=== PATIENT | female | born 1990 ===

== ENCOUNTER 2017-02-22 18:37 | Emergency (ER) | payer MEDICAID ==
[2017-02-22 20:47] LABS: BASO % 0.5 % (0.0-2.0); EOS # 0.2 K/uL (0.0-0.7); EOS % 2.3 % (0.0-4.0); HEMATOCRIT 38.7 % (34.0-47.0); LYMPH # 2.8 K/uL (1.0-4.3); LYMPH % 37.5 % (20.0-40.0); MEAN CELL VOLUME 88.1 fL (81.0-99.0); MEAN CORPUSCULAR HEMOGLOBIN 28.7 pg (27.0-31.0); MEAN CORPUSCULAR HGB CONC 32.6 g/dL (33.0-37.0); MEAN PLATELET VOLUME 10.2 fL (7.2-11.7); MONO # 0.6 K/uL (0.0-0.8); MONO % 8.1 % (0.0-10.0); NRBC % 0.1 % (0.0-2.0); RED CELL DISTRIBUTION WIDTH 13.9 % (11.5-14.5); WHITE BLOOD COUNT 7.4 K/uL (4.8-10.8)
[2017-02-22 20:56] LABS: CHLORIDE 99 mmol/L (98-107); POTASSIUM 4.2 mmol/L (3.6-5.2); SODIUM 141 mmol/L (132-148)
[2017-02-22 20:58] LABS: GFR AFRICAN-AMERICAN > 60
[2017-02-22 20:59] LABS: ALB/GLOB RATIO 1.4 (1.0-2.1); ALKALINE PHOSPHATASE 62 U/L (38-126); ALT/SGPT 16 U/L (9-52); AST/SGOT 26 U/L (14-36); BILIRUBIN,TOTAL 0.3 mg/dL (0.2-1.3); BLOOD UREA NITROGEN 18 mg/dL (7-17); CARBON DIOXIDE 24 mmol/L (22-30); GLUCOSE,RANDOM 106 mg/dL (65-105); TOTAL PROTEIN 7.7 g/dL (6.3-8.3)
--- NOTE | 2017-02-22 21:21 | C.PDOC ---
Time Seen by Provider: 02/22/17 20:25 Chief Complaint (Nursing): Chest Pain History Per: Patient Onset/Duration Of Symptoms: Days (1) Current Symptoms Are (Timing): Still Present Severity: Moderate Location Of Discomfort (Image): 1 - pain Quality: Sharp, "Pain" Associated Symptoms: denies: Dyspnea, Diaphoresis, Syncope Modifying Factors: Other Indicated Below Exacerbating Factors: Turning, Movement, Deep Breathing Additional History Per: Prior Records Past Medical History Reviewed: Historical Data, Nursing Documentation, Vital Signs Vital Signs: Last Vital Signs Temp 97.7 F 02/22/17 18:52 Pulse 70 02/22/17 18:52 Resp 18 02/22/17 18:52 BP 115/68 02/22/17 18:52 Pulse Ox 96 02/22/17 21:21 - Medical History PMH: Anxiety Surgical History: No Surg Hx Family History: States: Unknown Family Hx - Social History Hx Tobacco Use: No Hx Alcohol Use: No Hx Substance Use: No - Immunization History Hx Tetanus Toxoid Vaccination: No Hx Influenza Vaccination: No Hx Pneumococcal Vaccination: No Review Of Systems Except As Marked, All Systems Reviewed And Found Negative. Constitutional: Negative for: Fever, Weakness Respiratory: Negative for: Shortness of Breath, Hemoptysis Gastrointestinal: Negative for: Vomiting, Abdominal Pain Musculoskeletal: Negative for: Neck Pain, Back Pain, Leg Pain Skin: Negative for: Rash Neurological: Negative for: Weakness, Numbness, Seizures, Altered Mental Status Physical Exam - Physical Exam Appears: Non-toxic, No Acute Distress Skin: Normal Color, Warm, Dry, No Rash Head: Atraumatic, Normacephalic Eye(s): bilateral: PERRL, EOMI Neck: Normal ROM, Supple Chest: Symmetrical, No Deformity, Tenderness (at xyphoid process), No Ecchymosis , No Subcutaneous Emphysema Cardiovascular: Rhythm Regular Respiratory: Normal Breath Sounds, No Accessory Muscle Use Gastrointestinal/Abdominal: Soft, No Tenderness Back: No CVA Tenderness Extremity: Normal ROM, No Pedal Edema, No Calf Tenderness Neurological/Psych: Oriented x3, Normal Motor, Normal Sensation ED Course And Treatment - Laboratory Results Result Diagrams: 02/22/17 20:43 02/22/17 20:43 Lab Interpretation: No Acute Changes Urine POC: Negative ECG: Interpreted By Me, Viewed By Me ECG Rhythm: Sinus Rhythm, Nonspecific Changes ECG Interpretation: No Acute Changes Rate From EC O2 Sat by Pulse Oximetry: 96 Pulse Ox Interpretation: Normal - Radiology CXR: Interpreted by Me, Viewed By Me CXR Interpretation: Yes: No Acute Disease, Heart Size (WNL) Reassessment Condition: Improved Progress - Interventions Interventions:: Observation - Medications Administered Intravenous: H-2 robby, NSAID - Data Reviewed Data Reviewed: Lab, Diagnostic imaging, EKG, Old records - Patient Status Patient status: Mostly improved - Continuity of Care Discussed patient case with:: Patient, ED Nurse - Patient Plan Patient Plan: Discharge, F/U with PCP Disposition Counseled Patient/Family Regarding: Studies Performed, Diagnosis, Need For Followup, Rx Given - Disposition Referrals: Key Callaway MD [Medical Doctor] - Disposition: HOME/ ROUTINE Disposition Time: 21:23 Condition: IMPROVED Additional Instructions: Follow up with your doctor for further evaluation and treatment. Return to the ER if you develop shortness of breath, vomiting, worsening of symptoms or if you have any other concerns. Prescriptions: Ibuprofen [Motrin Tab] 400 mg PO TID PRN #30 tab PRN Reason: Pain, Moderate (4-7) Instructions: Noncardiac Chest Pain (ED) Print Language: ITALIAN - Clinical Impression Clinical Impression: Xyphoidalgia
[2017-02-22 21:39] VITALS: BP 112/68; PULSE 68; RESP 16; TEMP 98.6; O2SAT 100
--- NOTE | 2017-02-23 11:40 | RAD ---
HISTORY: chest pain COMPARISON: Chest x-ray performed 08/13/16 TECHNIQUE: Chest, one view. FINDINGS: LUNGS: No focal consolidation. Please note that chest x-ray has limited sensitivity for the detection of pulmonary masses. PLEURA: No significant pleural effusion identified. No definite pneumothorax . CARDIOVASCULAR: The cardiomediastinal silhouette appears within normal limits of size. OSSEOUS STRUCTURES: No acute osseous abnormality identified. VISUALIZED UPPER ABDOMEN: Unremarkable. OTHER FINDINGS: None. IMPRESSION: No focal consolidation, significant pleural effusion, or definite pneumothorax identified.
--- NOTE | 2017-03-02 12:09 | CARD ---
APPROVED REPORT EKG Measurement Heart [id number] <Conclusion> Normal sinus rhythm with sinus arrhythmia Normal ECG
== END 2017-02-22 21:38 | disposition home or self-care (01) ==
LOC: C.ER 18:37
DX: R07.89 Other chest pain (principal)
CPT/HCPCS: 71010; 80053; 80324; 80345; 80346; 80349; 80353; 80358; 80361; 83690; 83992; 84484; 84703; 85025; 96374; 96375; 99285; J1885